=== PATIENT | female | born 2005 | race Caucasian/White ===

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

== ENCOUNTER → 2024-07-06 12:22 | Outpatient (CLI) | payer OTHER, MEDICAID, SELFPAY ==
[2022-07-10 19:27] VITALS: BMI 21.7
[2024-07-06 13:22] LABS: Add Manual Diff / Slide Review NO; Basophils Absolute Auto 100 /uL (0-100); Basophils Percent Auto 0.9 % (0-2); Eosinophils Absolute Auto 400 /uL (0-450); Eosinophils Percent Auto 5.1 % (2-4); Hemoglobin 14.8 g/dL (12.0-16.0); Lymphocytes Absolute Auto 2900 /uL (1100-4500); Lymphocytes Percent Auto 35.3 % (25-40); Mean Corpuscular HGB Conc 33.7 % (30-36); Mean Corpuscular Hemoglobin 29.2 PG (26-34); Mean Corpuscular Volume 86.5 fL (80-100); Monocytes Absolute Auto 500 /uL (0-900); Monocytes Percent Auto 5.5 % (3-14); Neutrophils Absolute Auto 4400 /uL (1500-7000); Neutrophils Percent Auto 53.2 % (50-75); Platelet Count 324 X10^3/uL (150-400); Red Blood Cell Count 5.09 X10^6/uL (4.0-5.2); Red Cell Distribution Width 13.2 % (11.6-14.8); White Blood Cell Count 8.3 X10^3/uL (4.5-11.0)
[2024-07-06 13:35] LABS: BUN Creatinine Ratio 34.8 (6-22); Blood Urea Nitrogen 16 mg/dL (7-17); Calcium 9.9 mg/dL (8.4-10.2); Carbon Dioxide 20 mmol/L (22-32); Chloride 101 mmol/L (98-107); Estimated Glomerular Filt Rate > 60 mL/min (>60); Glucose 418 mg/dL (70-100); HEMOLYSIS < 15 (0-50); Potassium 4.5 mmol/L (3.4-5.1); Sodium 133 mmol/L (137-145)
[2024-07-06 13:38] LABS: Hemoglobin A1C% w Est Avg Glu > 14.0 % (4.0-6.0)
== END ==
PROVIDERS: PCP Nurse Practitioner Family; Referring Provider Nurse Practitioner Family; Visit Provider Nurse Practitioner Family
DX: E10.9 Type 1 diabetes mellitus without complications (principal)
CPT/HCPCS: 36415; 80048; 83036; 85025

== ENCOUNTER 2024-08-11 08:30 | Emergency (ER) | payer OTHER, SELFPAY ==
[2022-07-10 19:27] VITALS: BMI 21.7
--- NOTE | 2024-08-11 08:37 | ED.GENADULT ---
HPI - General Adult General Chief complaint: Nausea/Vomiting/Diarrhea Stated complaint: Diabetes issues Time Seen by Provider: 08/11/24 08:37 History of Present Illness HPI narrative: 19-year-old woman with a history of type 1 diabetes admitted for DKA approximately 2 years ago. She recently switched from [employer] insurance to a new plan and for the last 2 months has been having difficulty getting her short-acting insulin has not been using any bolus dosing, as well as glucose testing supplies and has not been testing. Has not had her continuous glucose monitor supplies refilled for a number of months. She has been using her evening Lantus only. She notes she has been increasingly thirsty, increased urine frequency generally feeling unwell and concerned that she may be in DKA. No fevers, cough, chills. Nausea but no vomiting. No diarrhea. Related Data Previous Rx's Medication Instructions Recorded insulin glargine 100 unit/mL (3 26 unit (0.26 mL) SUBCUT BEDTIME 07/06/24 mL) subcutaneous pen (Lantus diabetes #15 mL Solostar U-100 Insulin) insulin lispro 100 unit/mL 1 unit (0.01 mL) SUBCUT QAC #15 mL 07/06/24 subcutaneous half-unit pen (Humalog Ori KwikPen (U-100)) blood-glucose sensor (Dexcom G6 See Rx Instructions .Route 07/28/24 Sensor device) .COMPLEX #3 ea insulin pump cart,automated,BT #5 ea 07/28/24 (Omnipod 5 G6 Pods (Gen 5) subcutaneous cartridge) Allergies Allergy/AdvReac Type Severity Reaction Status Date / Time No Known Drug Allergies Allergy Verified 07/06/24 11:32 Review of Systems Review of Systems Narrative: Pertinent positive and negative findings as per HPI Patient History Medical History (Updated 08/11/24 @ 10:30 by Shwetha Purdy MD) Vision changes Anxiety about health Type 1 diabetes Social History household members: none Smoking Status: Current every day smoker Tobacco: How many years used: 5 second hand exposure: No alcohol intake: never substance use type: does not use Smoking Status: Current every day smoker tobacco type: vaping alcohol intake frequency: 0-2 drinks per day Exam Initial Vital Signs Initial Vital Signs: Vital Signs Temperature 97.6 F 08/11/24 08:46 Pulse Rate 116 H 08/11/24 08:46 Respiratory Rate 25 H 08/11/24 08:46 Blood Pressure 115/77 08/11/24 08:46 Pulse Oximetry 98 08/11/24 08:46 Oxygen Delivery Method Room Air 08/11/24 08:46 General: Pale, appears uncomfortable, able to speak in complete sentences HEENT: Dry mucous membranes, normal sclera with reactive pupils, Respiratory: Lungs are clear to auscultation, deep breathing mildly tachypneic borderline Kussmaul pattern Cardiac: Tachycardic but otherwise Regular rate and rhythm no murmurs no bruits Abdomen: Soft, mild diffuse tenderness without rebound or guarding Skin: Pale, mild dehydration Neurologic: Grossly neurologically intact with no obvious asymmetries or abnormalities Psych: Cooperative, appropriate insight and affect Course Orders Ordered: ED Orders 08/11/24 08:47 Complete Blood Count AUTO DIFF Stat Comprehensive Metabolic Panel Stat Ketones (Beta-Hydroxybutyrate) Stat Lipase Stat 08/11/24 08:51 VBG [Venous Blood Gas] STAT 08/11/24 08:52 Urinalysis and Microscopic Stat 08/11/24 09:16 EKG-12 Lead Stat Discontinued Medications Sodium Chloride (Normal Saline 0.9%) 1,000 mls @ 1,000 mls/hr IV BOLUS ONE Stop: 08/11/24 09:50 Last Infusion: 08/11/24 10:09 Dose: Infused Documented By: Admin: 08/11/24 09:02 Dose: 1,000 mls/hr Documented By: TONEY Sodium Chloride (Normal Saline 0.9%) 1,000 mls @ 1,000 mls/hr IV BOLUS ONE Stop: 08/11/24 11:29 Last Infusion: 08/11/24 11:20 Dose: Infused Documented By: Admin: 08/11/24 10:38 Dose: 1,000 mls/hr Documented By: TONEY Insulin Glargine (Insulin Glargine 100 Unit/Ml 3ml Pen) 10 unit SUBCUT NOW ONE Stop: 08/11/24 10:32 Last Admin: 08/11/24 10:38 Dose: 10 unit Documented By: TONEY Co-signed By: GHAZALA Ondansetron HCl (Ondansetron 4 Mg/2 Ml Inj) 4 mg IV NOW ONE Stop: 08/11/24 08:52 Last Admin: 08/11/24 09:03 Dose: 4 mg Documented By: TONEY Vital Signs Vital signs: Vital Signs - 8 hr 08/11/24 08:46 08/11/24 10:48 Temperature 97.6 F Pulse Rate 116 H 107 H Respiratory Rate 25 H 20 Blood Pressure 115/77 116/71 Pulse Oximetry 98 100 Oxygen Delivery Method Room Air Room Air Medical Decision Making Lab Data 08/11/24 08:47 08/11/24 08:47 Labs: Lab Results 08/11/24 Range/Units 08:47 WBC 5.8 (4.5-11.0) X10^3/uL RBC 5.33 H (4.0-5.2) X10^6/uL Hgb 15.7 (12.0-16.0) g/dL Hct 45.6 (36-46) % MCV 85.5 (80-100) fL MCH 29.4 (26-34) PG MCHC 34.4 (30-36) % RDW 12.7 (11.6-14.8) % Plt Count 352 (150-400) X10^3/uL Neut % (Auto) 85.1 H (50-75) % Lymph % (Auto) 6.0 L (25-40) % Chester % (Auto) 5.9 (3-14) % Eos % (Auto) 2.6 (2-4) % Baso % (Auto) 0.4 (0-2) % Neut # (Auto) 4900 (2735-0731) /uL Lymph # (Auto) 300 L (9596-3821) /uL Chester # (Auto) 300 (0-900) /uL Eos # (Auto) 100 (0-450) /uL Baso # (Auto) 0 (0-100) /uL Sodium 135 L (137-145) mmol/L Potassium 3.5 (3.4-5.1) mmol/L Chloride 106 (98-107) mmol/L Carbon Dioxide 21 L (22-32) mmol/L BUN 21 H (7-17) mg/dL Creatinine 0.48 L (0.52-1.04) mg/dL Estimated GFR > 60 (>60) mL/min BUN/Creatinine Ratio 43.8 H (6-22) Glucose 264 H (70-100) mg/dL Calcium 8.8 (8.4-10.2) mg/dL Total Bilirubin 0.9 (0.2-1.3) mg/dL AST 27 (14-36) IU/L ALT 19 (<35) IU/L Alkaline Phosphatase 68 (38-126) U/L Total Protein 7.2 (6.3-8.2) g/dL Albumin 4.1 (3.5-5.0) g/dL Globulin 3.1 (1.7-4.1) g/dL Albumin/Globulin Ratio 1.3 (1.0-2.8) Lipase 55 (23-300) U/L Ketones 1.16 H (<0.27) mmol/L Point of Care Testing Glucose POC 260 Point of care testing: Point of Care Testing Glucose POC 260 MDM Narrative Medical decision making narrative: CC: Concern for DKA Complicating co-morbidities: Type 1 diabetes, insurance change 2 months ago difficulty getting short-acting insulin continuous glucose monitor supplies and follow up. Using Lantus without any supplemental short-acting insulin for a number of months Data collected from: patient, mother Social determinants of health that may influence the patients condition: Difficulty accessing diabetes place Discussion with her nurse practitioner regarding supplies. Practitioner stated that orders has been sent and she had not received information back from the pharmacy. She was sending information to [facility] pharmacy and patient has been going to [facility] in [place]. Listed in the chart is Medicaid as her primary insurance patient is not clear on what her current insurance coverage is in apparently did not receive an insurance card from her provider. This too may be part of the problem. Patient and her mother are working on clarifying insurance coverage and I will update that in the chart. Primary care provider is resending orders to [facility] with prior authorizations Medical records reviewed: DKA admit from 2021 is reviewed Differential considered: Hyperglycemia, DKA, viral syndrome Exam documented above, pertinent findings include: Pale, slightly dehydrated mild abdominal pain without rebound or guarding, mild tachycardia. No localizing signs of infection Lab Test results independently reviewed as above. Pertinent findings: VBG shows mild acidosis at 7.32 with a CO2 of 37.7 CBC is reassuring Chemistries show a glucose at 264. Appropriate renal function, carbon dioxide at 21. Liver studies are appropriate Anion gap of 11 Independently reviewed EKG: Sinus rhythm at a rate of 95 no acute ischemic changes Treatments: After a L of fluid she was feeling better but still slightly tachycardic. Zofran is significantly helped with nausea 2 L of fluid given, 10 units of Lantus subcutaneous this morning with breakfast including protein Discussion: 19-year-old woman with type 1 diabetes intermittent use of her insulin, insurance difficulties currently does not have her continuous glucose monitor has not been checking blood sugars has been using her Lantus but no short-acting insulin. 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 She has not in DKA at this time. We talked about temporizing measures until she can get back to regular blood sugar checks and appropriate bolusing for short-acting insulin. She has been using 26 units of Lantus at night, I am going to suggest that she go to 10 units in the morning and 16 units at night. Once supplies are available returning to daily daily doses of Lantus with NovoLog coverage we will restart. She is struggling with the emotional aspect of checking her sugars and dealing with her type 1 diabetes. She has been in counseling in the past would like to restart. Her mom feels that they can call her prior counselor and we will do so. We will also ask her to follow up with her primary care physician. She understands the need to return to the emergency department if she has further issues. Discharge Plan Departure Patient Disposition: Home Clinical Impression: Hyperglycemia Type 1 diabetes Qualifiers: Diabetes mellitus complication status: without complication Qualified Code(s): E10.9 - Type 1 diabetes mellitus without complications Vomiting Qualifiers: Vomiting type: unspecified Nausea presence: with nausea Qualified Code(s): R11.2 - Nausea with vomiting, unspecified Activity Restrictions/Additional Instructions: Thank you for coming in today, it was the right thing to do You are not in DKA however your blood sugar was slightly elevated and you were dehydrated. You are given 2 units of fluid in the emergency department. The Zofran has been helpful in controlling your nausea. You were able to eat and drink prior to discharge We were able to figure out your new insurance information and that insurance information has been provided to your primary care provider as well as hospital registration to make sure that everything is updated. I did speak with your primary care provider who is in the process of making sure that all of the insulin supplies and glucose monitoring supplies are available. She will be speaking with the pharmacy and discussing pre authorization today. Before you leave [place], I would check with the [facility] in [place] and see if they have been able to fill any of the prescriptions In the meantime, I am going to suggest that we split up your Lantus insulin from 26 units at night to 10 units in the morning and 16 units at night. There is truly no safe insulin dose when you are not checking your blood sugars however, I believe this is going to be the path of least harm. When you get the remainder of your supplies go back to 26 units at night with sliding scale coverage as you have used previously Managing type 1 diabetes is a very big deal. Most type 1 diabetics struggle with their diabetes. The fact that you are doing so means that you are absolutely normal. It also means that you do need to get back into your counselor to review some of the psychologic road blocks to getting your diabetes into better control If you find that you are getting worse or develop any new symptoms, please feel free to return to the emergency department for further evaluation. Prescriptions: No Action Dexcom G6 Sensor Device See Rx Instructions .ROUTE .COMPLEX Qty: 3 1RF Dose Instruction: FOR DIABETES; CHECK BLOOD GLUCOSE THREE TIMES DAILY BEFORE MEALS Rx Instructions: FOR DIABETES; CHECK BLOOD GLUCOSE THREE TIMES DAILY BEFORE MEALS/ PT NEEDS TO EST CARE WITH NEW PCP BEFORE NEXT FILL 07/07/22 (DME) Omnipod 5 G6 Pods (Gen 5) Cartridge See Rx Instructions .Route Qty: 5 5RF Rx Instructions: As directed Lantus Solostar U-100 Insulin 100 unit/mL (3 mL) insulin pen 26 unit SUBCUT BEDTIME Qty: 15 3RF insulin lispro [Humalog Ori KwikPen U-100] 100 unit/mL insulin pen, half-unit 1 unit SUBCUT QAC Qty: 15 0RF Rx Instructions: 1 unit/12g carbs Referrals: Bronwyn Hough, [facility] [Primary Care Provider] - Stand Alone Forms: Patient Portal/API/Survey
[2024-08-11 08:46] VITALS: BP 115/77; PULSE 116; RESP 25; TEMP 36.4; O2SAT 98; BMI 23.9
[2024-08-11] MEDS: SODIUM CHLORIDE 0.9% 1,000 ML 1000 ML IV ×2 (09:02→10:38)
[2024-08-11] MEDS: ONDANSETRON 4 MG/2 ML INJ IV (09:03)
[2024-08-11 09:06] LABS: Add Manual Diff / Slide Review NO; Basophils Absolute Auto 0 /uL (0-100); Basophils Percent Auto 0.4 % (0-2); Eosinophils Absolute Auto 100 /uL (0-450); Eosinophils Percent Auto 2.6 % (2-4); Hematocrit 45.6 % (36-46); Hemoglobin 15.7 g/dL (12.0-16.0); Lymphocytes Absolute Auto 300 /uL (1100-4500); Mean Corpuscular HGB Conc 34.4 % (30-36); Mean Corpuscular Hemoglobin 29.4 PG (26-34); Mean Corpuscular Volume 85.5 fL (80-100); Monocytes Absolute Auto 300 /uL (0-900); Monocytes Percent Auto 5.9 % (3-14); Neutrophils Absolute Auto 4900 /uL (1500-7000); Neutrophils Percent Auto 85.1 % (50-75); Platelet Count 352 X10^3/uL (150-400); Red Blood Cell Count 5.33 X10^6/uL (4.0-5.2); Red Cell Distribution Width 12.7 % (11.6-14.8); White Blood Cell Count 5.8 X10^3/uL (4.5-11.0)
[2024-08-11 09:16] LABS: Alanine Aminotransferase 19 IU/L (<35); Albumin 4.1 g/dL (3.5-5.0); Albumin Globulin Ratio 1.3 (1.0-2.8); Alkaline Phosphatase 68 U/L (38-126); Aspartate Aminotransferase 27 IU/L (14-36); BUN Creatinine Ratio 43.8 (6-22); Bilirubin Total 0.9 mg/dL (0.2-1.3); Blood Urea Nitrogen 21 mg/dL (7-17); Calcium 8.8 mg/dL (8.4-10.2); Carbon Dioxide 21 mmol/L (22-32); Chloride 106 mmol/L (98-107); Estimated Glomerular Filt Rate > 60 mL/min (>60); Globulin 3.1 g/dL (1.7-4.1); Glucose 264 mg/dL (70-100); HEMOLYSIS < 15 (0-50); Lipase 55 U/L (23-300); Potassium 3.5 mmol/L (3.4-5.1); Sodium 135 mmol/L (137-145); Total Protein 7.2 g/dL (6.3-8.2)
--- NOTE | 2024-08-11 09:16 | EKG_ITS ---
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
[2024-08-11 09:22] LABS: Ketones (Beta-Hydroxybutyrate) 1.16 mmol/L (<0.27)
[2024-08-11] MEDS: INSULIN GLARGINE 100 UNIT/ML 3ML PEN 10 UNIT SUBCUT (10:38)
[2024-08-11 10:48] VITALS: BP 116/71; PULSE 107; RESP 20; O2SAT 100
--- NOTE | 2024-08-11 11:19 | PC.NURSE ---
pt states that she is feeling muich better. denies abd pain and n/v.
[2024-08-11 11:55] VITALS: PULSE 110; RESP 18; O2SAT 99
== END 2024-08-11 11:59 | disposition home or self-care (01) ==
PROVIDERS: Emergency Provider Emergency Medicine; PCP Nurse Practitioner Family
DX: E10.65 Type 1 diabetes mellitus with hyperglycemia (principal); R11.2 Nausea with vomiting, unspecified
CPT/HCPCS: 36415; 80053; 82009; 82962; 83690; 85025; 93005; 96361; 96372; 96374; 99284; J2405

== ENCOUNTER → 2024-10-06 14:38 | Outpatient (CLI) | payer OTHER, SELFPAY ==
[2022-07-10 19:27] VITALS: BMI 21.7
[2024-10-06 15:35] LABS: BUN Creatinine Ratio 39.2 (6-22); Blood Urea Nitrogen 20 mg/dL (7-17); Calcium 9.6 mg/dL (8.4-10.2); Carbon Dioxide 23 mmol/L (22-32); Chloride 98 mmol/L (98-107); Estimated Glomerular Filt Rate > 60 mL/min (>60); HEMOLYSIS < 15 (0-50); Potassium 4.2 mmol/L (3.4-5.1); Sodium 134 mmol/L (137-145)
[2024-10-06 15:36] LABS: Hemoglobin A1C% w Est Avg Glu > 14.0 % (4.0-6.0)
[2024-10-06 16:35] LABS: Glucose 502 mg/dL (70-100)
== END ==
PROVIDERS: PCP Nurse Practitioner Family; Referring Provider Nurse Practitioner Family; Visit Provider Nurse Practitioner Family
DX: E10.9 Type 1 diabetes mellitus without complications (principal)
CPT/HCPCS: 36415; 80048; 83036

== ENCOUNTER 2024-10-06 16:56 | Emergency (ER) | payer OTHER, SELFPAY ==
[2022-07-10 19:27] VITALS: BMI 21.7
[2024-10-06 17:23] VITALS: BP 134/77; PULSE 78; RESP 16; TEMP 36.6; O2SAT 100; BMI 24.3
[2024-10-06 17:52] LABS: Add Manual Diff / Slide Review NO; Basophils Absolute Auto 100 /uL (0-100); Basophils Percent Auto 0.7 % (0-2); Eosinophils Absolute Auto 300 /uL (0-450); Eosinophils Percent Auto 2.8 % (2-4); Hematocrit 45.1 % (36-46); Hemoglobin 15.6 g/dL (12.0-16.0); Lymphocytes Absolute Auto 3500 /uL (1100-4500); Lymphocytes Percent Auto 37.4 % (25-40); Mean Corpuscular HGB Conc 34.7 % (30-36); Mean Corpuscular Hemoglobin 29.5 PG (26-34); Monocytes Absolute Auto 300 /uL (0-900); Neutrophils Absolute Auto 5200 /uL (1500-7000); Neutrophils Percent Auto 56.1 % (50-75); Platelet Count 353 X10^3/uL (150-400); Red Cell Distribution Width 12.8 % (11.6-14.8); White Blood Cell Count 9.3 X10^3/uL (4.5-11.0)
[2024-10-06 18:01] LABS: Alanine Aminotransferase 26 IU/L (<35); Albumin 4.8 g/dL (3.5-5.0); Albumin Globulin Ratio 1.4 (1.0-2.8); Alkaline Phosphatase 69 U/L (38-126); Aspartate Aminotransferase 27 IU/L (14-36); BUN Creatinine Ratio 38.8 (6-22); Bilirubin Total 0.7 mg/dL (0.2-1.3); Blood Urea Nitrogen 19 mg/dL (7-17); Calcium 9.5 mg/dL (8.4-10.2); Carbon Dioxide 26 mmol/L (22-32); Chloride 99 mmol/L (98-107); Estimated Glomerular Filt Rate > 60 mL/min (>60); Globulin 3.4 g/dL (1.7-4.1); Glucose 286 mg/dL (70-100); HEMOLYSIS 16 (0-50); Potassium 3.3 mmol/L (3.4-5.1); Sodium 136 mmol/L (137-145); Total Protein 8.2 g/dL (6.3-8.2)
[2024-10-06 18:05] LABS: Base Excess VBG -0.5 mmol/L (0-4); HCO3 VBG 25 mmol/L (24-28); Oxygen Saturation VBG 59 % (70-75); PCO2 VBG 41.7 mmHg (45-50); PO2 VBG 31 mmHg (35-45); Total CO2 VBG 24 mmol/L (24-29); pH VBG 7.38 (7.33-7.43)
[2024-10-06] MEDS: SODIUM CHLORIDE 0.9% 1,000 ML 1000 ML IV (18:17)
[2024-10-06 18:28] LABS: Ketones (Beta-Hydroxybutyrate) 0.37 mmol/L (<0.27)
[2024-10-06 20:57] VITALS: BP 139/90; PULSE 70; RESP 16; O2SAT 98
--- NOTE | 2024-10-06 22:07 | ED_ITS ---
HPI - General Adult General Chief complaint: Diabetic Problem Stated complaint: high A1c and blood sugar Time Seen by Provider: 10/06/24 22:04 Source: patient Mode of arrival: Ambulatory History of Present Illness HPI narrative: 19-year-old female with history of diabetes mellitus diagnosed at age 15, prior episodes of DKA, waiting on insurance approval for insulin pump, self reports her hemoglobin A1c 14 range, had routine blood draw earlier today and was called back for glucose level reported 500s. Patient has no fevers, chills, shortness of breath, recent illness symptoms, diarrhea, UTI symptoms. She takes insulin injections for glucose control but finds that she is very busy and misses doses regularly. No dizziness or weakness. Able to take oral fluids, no nausea or vomiting. Related Data Previous Rx's Medication Instructions Recorded insulin glargine 100 unit/mL (3 26 unit (0.26 mL) SUBCUT BEDTIME 07/06/24 mL) subcutaneous pen (Lantus diabetes #15 mL Solostar U-100 Insulin) insulin lispro 100 unit/mL 1 unit (0.01 mL) SUBCUT QAC #15 mL 07/06/24 subcutaneous half-unit pen (Humalog Ori KwikPen (U-100)) blood-glucose sensor (Dexcom G6 See Rx Instructions .Route 07/28/24 Sensor device) .COMPLEX #3 ea insulin pump cart,automated,BT #5 ea 07/28/24 (Omnipod 5 G6 Pods (Gen 5) subcutaneous cartridge) Allergies Allergy/AdvReac Type Severity Reaction Status Date / Time No Known Drug Allergies Allergy Verified 10/06/24 17:26 Patient History Medical History (Updated 10/06/24 @ 22:35 by Campos Mcguire MD) Vision changes Anxiety about health Type 1 diabetes Social History household members: none Smoking Status: Current every day smoker Tobacco: How many years used: 5 second hand exposure: No alcohol intake: never substance use type: does not use Smoking Status: Current every day smoker tobacco type: vaping alcohol intake frequency: 0-2 drinks per day Exam Narrative Exam Narrative: GENERAL: Well-developed patient, in mild distress. No fruity breath odor HEAD: Atraumatic. Normocephalic. EYES: Pupils equal round and reactive. Extraocular motions intact. No scleral icterus. No injection or drainage. ENT: Nose without bleeding, purulent drainage. Throat without erythema, tonsillar hypertrophy or exudate. Airway patent. NECK: Trachea midline. Non tender CARDIOVASCULAR: Regular rate and rhythm without murmurs, gallops, or rubs. RESPIRATORY: Clear to auscultation. Breath sounds equal bilaterally. No wheezes, rales, or rhonchi. GASTROINTESTINAL: Abdomen soft, non-tender, nondistended. EXTREMITIES: No edema or joint tenderness. BACK: Nontender without deformity or crepitance. No flank tenderness. NEURO: AOx3. Motor functions grossly nonfocal SKIN: No rash or erythema of visible areas Initial Vital Signs Initial Vital Signs: Vital Signs Temperature 98 F 10/06/24 17:23 Pulse Rate 78 10/06/24 17:23 Respiratory Rate 16 10/06/24 17:23 Blood Pressure 134/77 10/06/24 17:23 Pulse Oximetry 100 10/06/24 17:23 Oxygen Delivery Method Room Air 10/06/24 17:23 Course Orders Ordered: Discontinued Medications Sodium Chloride (Normal Saline 0.9%) 1,000 mls @ 1,000 mls/hr IV BOLUS ONE Stop: 10/06/24 19:14 Last Infusion: 10/06/24 19:42 Dose: Infused Documented By: Admin: 10/06/24 18:17 Dose: 1,000 mls/hr Documented By: MARGUERITE Ondansetron HCl (Ondansetron 4 Mg/2 Ml Inj) 4 mg IV NOW PRN PRN Reason: Nausea And Vomiting Ondansetron HCl (Ondansetron 4 Mg Odt) 4 mg PO NOW PRN PRN Reason: Nausea And Vomiting Potassium Chloride (Potassium Chloride 20 Meq/15 Ml Udc) 40 meq PO NOW ONE Stop: 10/06/24 22:16 Last Admin: 10/06/24 22:38 Dose: 40 meq Documented By: MARK ANTHONY Vital Signs Vital signs: Vital Signs - 8 hr 10/06/24 17:23 10/06/24 20:57 Temperature 98 F Pulse Rate 78 70 Respiratory Rate 16 16 Blood Pressure 134/77 139/90 Pulse Oximetry 100 98 Oxygen Delivery Method Room Air Room Air Medical Decision Making Lab Data Lab results reviewed: Yes I reviewed the patient's lab results. Lab results narrative: White blood cell count 9300, hemoglobin 15.6, platelets adequate. Glucose 286. Potassium 3.3, oral repletion ordered. Sodium 136, serum CO2 26, serum chloride 99. BUN 19 with creatinine 0.49 noted. Anion gap 11. VBG pH 7.38 noted. 10/06/24 17:40 10/06/24 17:40 Labs: Lab Results 10/06/24 10/06/24 Range/Units 17:40 17:58 WBC 9.3 (4.5-11.0) X10^3/uL RBC 5.30 H (4.0-5.2) X10^6/uL Hgb 15.6 (12.0-16.0) g/dL Hct 45.1 (36-46) % MCV 85.0 (80-100) fL MCH 29.5 (26-34) PG MCHC 34.7 (30-36) % RDW 12.8 (11.6-14.8) % Plt Count 353 (150-400) X10^3/uL Neut % (Auto) 56.1 (50-75) % Lymph % (Auto) 37.4 (25-40) % Russell % (Auto) 3.0 (3-14) % Eos % (Auto) 2.8 (2-4) % Baso % (Auto) 0.7 (0-2) % Neut # (Auto) 5200 (0485-1619) /uL Lymph # (Auto) 3500 (1512-4463) /uL Russell # (Auto) 300 (0-900) /uL Eos # (Auto) 300 (0-450) /uL Baso # (Auto) 100 (0-100) /uL VBG pH 7.38 (7.33-7.43) VBG pCO2 41.7 L (45-50) mmHg VBG pO2 31 L (35-45) mmHg VBG HCO3 25 (24-28) mmol/L VBG Total CO2 24 (24-29) mmol/L VBG O2 Saturation 59 L (70-75) % VBG Base Excess -0.5 L (0-4) mmol/L FiO2 % 21 % % Sodium 136 L (137-145) mmol/L Potassium 3.3 L (3.4-5.1) mmol/L Chloride 99 (98-107) mmol/L Carbon Dioxide 26 (22-32) mmol/L BUN 19 H (7-17) mg/dL Creatinine 0.49 L (0.52-1.04) mg/dL Estimated GFR > 60 (>60) mL/min BUN/Creatinine Ratio 38.8 H (6-22) Glucose 286 H D (70-100) mg/dL Calcium 9.5 (8.4-10.2) mg/dL Total Bilirubin 0.7 (0.2-1.3) mg/dL AST 27 (14-36) IU/L ALT 26 (<35) IU/L Alkaline Phosphatase 69 (38-126) U/L Total Protein 8.2 (6.3-8.2) g/dL Albumin 4.8 (3.5-5.0) g/dL Globulin 3.4 (1.7-4.1) g/dL Albumin/Globulin Ratio 1.4 (1.0-2.8) Ketones 0.37 H (<0.27) mmol/L Point of Care Testing Glucose POC 198 Point of care testing: Point of Care Testing Glucose POC 198 MDM Narrative Medical decision making narrative: 19-year-old female with history of diabetes, history of prior diabetic ketoacidosis, high sugar 501 reported from prior office visit, advised to come here for further evaluation. Glucose here 289 noted, normal anion gap, pH on VBG normal. Not consistent with diabetic ketoacidosis. Low potassium noted, oral repletion given.. We will discharge home on regular regimen. Continue current medication regimen. Consider repeat potassium level in follow up. Discharged home, stable improved. Discharge Plan Departure Patient Disposition: Home Clinical Impression: Hyperglycemia, History of diabetes mellitus Activity Restrictions/Additional Instructions: Ms Lacey, Hosea had high sugar level over 500 earlier today, drawn from clinic, history of diabetic ketoacidosis, advised to arrived here for further evaluation. Blood sugar here was 289. Other lab tests also reassuring, no evidence of diabetic ketoacidosis today. Continue taking your insulin regimen. Continue advocating for insulin pump through your provider and your health insurance, as this likely we will give you access to better glucose control overall. Your blood potassium was a little low today, oral potassium repletion was given. Follow up with your regular provider as planned. Take your medications as directed. Return earlier to this/nearest emergency department for any change worsening symptoms or any concerns prior. Thank you for allowing our team to take care of you today. Prescriptions: No Action Dexcom G6 Sensor Device See Rx Instructions .ROUTE .COMPLEX Qty: 3 1RF Dose Instruction: FOR DIABETES; CHECK BLOOD GLUCOSE THREE TIMES DAILY BEFORE MEALS Rx Instructions: FOR DIABETES; CHECK BLOOD GLUCOSE THREE TIMES DAILY BEFORE MEALS/ PT NEEDS TO EST CARE WITH NEW PCP BEFORE NEXT FILL 07/07/22 (DME) Omnipod 5 G6 Pods (Gen 5) Cartridge See Rx Instructions .Route Qty: 5 5RF Rx Instructions: As directed Lantus Solostar U-100 Insulin 100 unit/mL (3 mL) insulin pen 26 unit SUBCUT BEDTIME Qty: 15 3RF insulin lispro [Humalog Ori KwikPen U-100] 100 unit/mL insulin pen, half- unit 1 unit SUBCUT QAC Qty: 15 0RF Rx Instructions: 1 unit/12g carbs Referrals: Bronwyn Hough, [facility] [Primary Care Provider] - Stand Alone Forms: Patient Portal/API/Survey
[2024-10-06] MEDS: POTASSIUM CHLORIDE 20 MEQ/15 ML UDC 40 MEQ PO (22:38)
[2024-10-06 22:44] VITALS: BP 130/84; PULSE 72; RESP 16; O2SAT 100
== END 2024-10-06 22:44 | disposition home or self-care (01) ==
PROVIDERS: Emergency Medicine; Emergency Provider Emergency Medicine; PCP Nurse Practitioner Family
DX: E10.65 Type 1 diabetes mellitus with hyperglycemia (principal); Z79.4 Long term (current) use of insulin; E10.9 Type 1 diabetes mellitus without complications
CPT/HCPCS: 36415; 80048; 80053; 82009; 82805; 82962; 83036; 85025; 96360; 99284

== ENCOUNTER → 2024-11-16 12:53 | Outpatient (CLI) | payer OTHER, SELFPAY ==
[2022-07-10 19:27] VITALS: BMI 21.7
--- NOTE | 2024-11-16 12:54 | DIAB.INIT ---
Initial Diabetes Education Assessment Name: Elham Lacey Date: 11/16/24 Time: 1-155 Dx: T1DM Provider: [place] Elham presents for initial DM visit virtually using [facility]. Diagnosed in 2019. Lives in [place]. Back on Omnipod. Was off for 4 months. Back on x 1 month Has Roberto Carlos riley referral per report. Unaware of [place] [facility] education and endo per report. Works at [employer]. Reports during work feeling as though she does not trust her correction settings. No lows this week at work, with exception of one day where her activity was higher after lunch. RD messaged Omnipod sap trainer about a sensitivity change or activity mode during work option. States she will sometimes add CHO she does not actually eat as a correction. States she would like more of a review of carb bolusing. Historically she did not bolus, which was likely the main contributing factor to her hyperglycemia. Previously afraid to bolus for fear of lows. Has a therapist, whom she chats about this with. Settings: basal rate: 0.8-1u/hr IC: 1:9 ISF: 1:35 BG target: 12a-9p: 130mg/dl and 9p-12a: 150mg/dl BG threshold: 12a-9p: 200mg/dl and 9p-12a: 200mg/dl TDD: 41.1u Diet Recall: wake 7- 7-9a: egg whites, cheese, roasted potatoes 1p: rice stir [place] with spicy sauce, tofu-- microwavable rice with veggies 1-7p: 2 macrons (4-6 per day) 630-7p: gardein frozen meatball, rice or pasta 8p: protein bar pre gym Harder to estimate CHO at family dinner, eating out. Physical Activity: Gym 4 days per week Self-Monitoring Blood Glucose: TIR: 9% very high 31% high 60% in range 0% low avmg/dl Std dev: 50mg/dl variation: 28.4% Diabetes Medications: omnipod Pertinent Labs: HgA1c: >14% 09/2024 >14% 06/2024 Past Medical History: (Last Updated 07/06/24 @ 14:50 by Bronwyn Hough, [facility]-) Anxiety about health Type 1 diabetes Vision changes Intervention: This participant was very receptive. Provided appropriate educational handouts. Discussed the following topics: Omnipod settings and avoiding false carb entries vs changes ISF Local DM education and endo resources near her Bolusing for meals Review of CHO amounts in foods she eats Created SMART goals for patient self-care and success. Goals: Call Margie Riley to see if you need a referral Avoid adding false CHO entires Continue bolusing Follow-up: REBEKAH GANDHI follow-up in 2 weeks Carolina Powell RDN, [facility] Certified Diabetes [facility] and Jewel Sawyer P: [phone] Thank you for this referral
== END ==
PROVIDERS: PCP Nurse Practitioner Family; Referring Provider Nurse Practitioner Family
DX: E11.10 Type 2 diabetes mellitus with ketoacidosis without coma (principal); Z96.41 Presence of insulin pump (external) (internal); Z71.3 Dietary counseling and surveillance
CPT/HCPCS: G0108

== ENCOUNTER → 2024-12-07 13:02 | Outpatient (CLI) | payer OTHER, SELFPAY ==
[2022-07-10 19:27] VITALS: BMI 21.7
--- NOTE | 2024-12-07 13:03 | DIAB.FU ---
Follow-up Diabetes Education Assessment Name: Elham Lacey Date: 12/07/24 Time: 1-130p Dx: T1DM Provider: [place] Lizarraga presents for follow-up DM visit virtually using Portal. Diagnosed in 2020. Lives in [place]. Reports increased stress last week. Mother had surgery. Also work has been very busy for two weeks, this week is better. Eating mostly processed foods from a box and using that for CHO content. Reports some compromised sites from overuse, endorses some scar tissue. Trying leg for infusion site. She seems to be bolusing appropriately and using correction vs adding false CHO. Higher BG, which may be r/t stress and the need for increased ISF. Has not yet called [facility] to determine if a referral is needed, but plans to do so today. Settings: IC: 1:9 ISF: 1:35--- changed to 1:38 basal rate: 0.8-1u/hr BG target: 12a-9p: 130mg/dl and 9p-12a: 150mg/dl BG threshold: 12a-9p: 200mg/dl and 9p-12a: 200mg/dl TDD: 41.1u----52.7u Physical Activity: Gym 4 days per week Self-Monitoring Blood Glucose: Significant increase in hyperglycemia since last visit. TIR: 31% very high 28% high 41% in range 0% low avmg/dl GMI: 8.4% Std dev: 79 mg/dl variation: 36.7% Last TIR: 9% very high 31% high 60% in range 0% low avmg/dl Std dev: 50mg/dl variation: 28.4% Diabetes Medications: insulin via omnipod Pertinent Labs: HgA1c: >14% 09/2024 >14% 06/2024 Past Medical History: (Last Updated 07/06/24 @ 14:50 by Bronwyn Hough, [facility]) Anxiety about health Type 1 diabetes Vision changes Intervention: This participant was very receptive. Provided appropriate educational handouts. Discussed the following topics: Omnipod settings and slight change to ISF Stress management and impact on BG Site changes and scar tissue impact on insulin infusion Encouraged calling local endo office Created SMART goals for patient self-care and success. Goals: Call [facility] to see if you need a referral-- in progress Avoid adding false CHO entires - met Continue bolusing - met Message RD in one week or less to report on ISF change- new Follow-up: REBEKAH GANDHI follow-up in 2-3 weeks anastasiia Powell RDN, HIRAM Certified Diabetes Care and Supervisor [employer] P: [phone] Thank you for this referral
== END ==
LOC: DIET 13:02
PROVIDERS: PCP Nurse Practitioner Family; Referring Provider Nurse Practitioner Family
DX: E10.65 Type 1 diabetes mellitus with hyperglycemia (principal); Z71.3 Dietary counseling and surveillance; Z96.41 Presence of insulin pump (external) (internal)
CPT/HCPCS: G0108

== ENCOUNTER → 2024-12-29 12:50 | Outpatient (CLI) | payer OTHER, SELFPAY ==
[2022-07-10 19:27] VITALS: BMI 21.7
--- NOTE | 2024-12-29 15:43 | DIAB.FU ---
Follow-up Diabetes Education Assessment Name: Elham Lacey Date: 12/29/24 Time: [id number] Dx: T1DM Provider: [place] Elham presents for follow-up DM visit virtually using Portal. Diagnosed in 2019. Lives in [place]. Mom is doing well and less stress at work lately. Reports gap in insurance with being on her father's plan, but recently got insurance from her job. Has h/o missing pump supplies due to gap in insurance. has called [facility] and has appt for April. Offered [facility] program, but states she is happy working with this RD virtually at this time. Mother lives in [place] and she comes here for PC appts. Needs to figure out CGM rx since switching insurance. Gets G6 from [employer]. Omnipod not compatible with iphone and G7 until Fall 2024 per Omnipod hardware trainer. Elham has not tried G7 before. May want to trial sample in the future. Gets Omnipods from [facility]. 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 Sometimes bolusing late for lunch and dinner meals. Those are where most elevations seem to occur. May need stronger insulin to carb ratio. Settings: IC: 1:9 ISF: 1:36 basal rate: 0.8-1u/hr BG target: 12a-9p: 130mg/dl and 9p-12a: 150mg/dl BG threshold: 12a-9p: 200mg/dl and 9p-12a: 200mg/dl TDD: 41.1u----52.7u---43u Physical Activity: Gym 4 days per week previously reported. Not discussed today. Self-Monitoring Blood Glucose: Improved TIR but still <70% time in range. TIR: 18% very high 25% high 57% in range 0% low avmg/dl GMI: 7.8% Std dev: 68 mg/dl variation: 36.1% Last TIR: 31% very high 28% high 41% in range 0% low avmg/dl GMI: 8.4% Std dev: 79 mg/dl variation: 36.7% Diabetes Medications: insulin via omnipod Pertinent Labs: HgA1c: >14% 09/2024 >14% 06/2024 Past Medical History: (Last Updated 07/06/24 @ 14:50 by Bronwyn Hough, [facility]-) Anxiety about health Type 1 diabetes Vision changes Intervention: This participant was very receptive. Provided appropriate educational handouts. Discussed the following topics: Encouraged keeping endo visit in Sept Brainstormed steps to making sure supplies are covered by new insurance CHO content of bakery foods Bolusing pre meal Created SMART goals for patient self-care and success. Goals: Message RD in one week or less to report on ISF change- met Call DME about CGM sensors and insurance chagne- new Reevaluate CHO for bakery goods for better coverage- new Try to bolus pre meal at lunch and dinner- new Follow-up: REBEKAH GANDHI follow-up in 2-3 weeks. Consider IC change if meals still elevated consistently. Carolina Powell, REBEKAH, CDCES Certified Diabetes Care and Software Engineer Developer P: [phone] Thank you for this referral
== END ==
LOC: DIET 12:51
PROVIDERS: PCP Nurse Practitioner Family; Referring Provider Nurse Practitioner Family
DX: E10.10 Type 1 diabetes mellitus with ketoacidosis without coma (principal); Z71.3 Dietary counseling and surveillance; Z96.41 Presence of insulin pump (external) (internal)
CPT/HCPCS: G0108

== ENCOUNTER → 2025-01-11 12:59 | Outpatient (CLI) | payer OTHER, SELFPAY ==
[2022-07-10 19:27] VITALS: BMI 21.7
--- NOTE | 2025-01-11 13:05 | DIAB.FU ---
Follow-up Diabetes Education Assessment Name: Elham Lacey Date: 01/11/25 Time: 1-130p Dx: T1DM Provider: [place] Lizarraga presents for follow-up DM visit virtually using Portal. Diagnosed in 2020. Lives in [place]. Insulin approved with new insurance. DME updated with new insurance, and should receive sensors next week. Running low on CGM G6 supplies. No low BG recently, but having frequent elevations particularly mid day. 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 She feels she may not be dosing enough insulin. Also sometimes missing her bolus pre meal per report. Most times reports indicate pre bolusing, however occasional missed bolus documented. Other snacks at work, she has increased the bolus for and that seems to be working well. Not using correction dosing in Omnipod. Will dose extra carbs instead. Settings: IC: 1:9 ISF: 1:35 BG target; 110mg/dl TDD: 41.1u----52.7u---43u----46.5u Physical Activity: Gym 4 days per week previously reported. Not discussed today. Self-Monitoring Blood Glucose: Slight increase in hyperglycemia. On the last 10 days of her G6 transmitter. DME should be shipping tomorrow, but she is not sure of details. TIR: 20% very high 26% high 54% in range 0% low avmg/dl GMI: 7.9% Std dev: 67 mg/dl variation: 35.3% Last TIR: 18% very high 25% high 57% in range 0% low avmg/dl GMI: 7.8% Std dev: 68 mg/dl variation: 36.1% Diabetes Medications: insulin via omnipod Pertinent Labs: HgA1c: >14% 09/2024 >14% 06/2024 Past Medical History: (Last Updated 07/06/24 @ 14:50 by Bronwyn Hough, [facility]) Anxiety about health Type 1 diabetes Vision changes Nutrition Rx: CHO 45g per meal ; snacks: 15-30g Nutrition Diagnosis: Nutrition and food related knowledge deficit r/t needing more guidance on CHO content aeb pt report of under bolusing Intervention: This participant was very receptive. Provided appropriate educational handouts. Discussed the following topics: CHO content of brownies Estimating CHO in baked goods Using correction vs entering false CHO portions Troubleshooting for supplies Created SMART goals for patient self-care and success. Goals: Call DME about CGM sensors and insurance change- met Reevaluate CHO for bakery goods for better coverage- met/in progress Try to bolus pre meal at lunch and dinner- improved Try 45-60g for brownie- new Use correction vs false CHO entries- new Call DME about shipping for G6 transmitter- new Follow-up: REBEKAH GANDHI follow-up in 3-4 weeks. Consider IC change if meals still elevated consistently. Carolina Powell RDN, [facility] Certified Diabetes Care and Postbed Stitcher P: [phone] Thank you for this referral
== END ==
PROVIDERS: PCP Nurse Practitioner Family; Referring Provider Nurse Practitioner Family
DX: E10.65 Type 1 diabetes mellitus with hyperglycemia (principal); Z71.3 Dietary counseling and surveillance; Z96.41 Presence of insulin pump (external) (internal)
CPT/HCPCS: 97803

== ENCOUNTER → 2025-05-04 15:27 | Outpatient (CLI) | payer OTHER, SELFPAY ==
[2022-07-10 19:27] VITALS: BMI 21.7
--- NOTE | 2025-05-04 15:32 | DIAB.MNTFU ---
Follow-up Diabetes Medical Nutrition Therapy Assessment Name: Elham Lacey Date: 05/04/25 Time: 108-2p Dx: T1DM Provider: [place] Elham presents for follow-up DM visit virtually using [facility] Portal. Diagnosed in 2019. Lives in [place]. Endo visit completed on 04/20. Reports hgA1c of 7.2%, much improved. States she has never had a hgA1c under 13% in the past. Reports endo changed target goal in AM to increase insulin and reduce elevated BG. Not currently using rec of 110mg/dl target goal. Maybe something to consider in the future. Seems to be under bolusing at meals. Reports bolusing for 90g at a meal that seems to be >100g, fast food meal. Has not previously looked up CHO or used any resources. Reports some emotional eating recently with back injury and being home lately. Seems to need review of CHO content. Tried G7 sensor and liked it. Coordinated with PCP about G7 rx, and now using G7 sensors with OP5. Picking up insulin q other week. 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 Due to eye appt. Reports h/o cataracts. Reports left eye blurry vision. UTD on dental. Plans to go to a music festival and needing to plan for DM supplies. Settings: IC: 1:9 ISF: 1:35--- changed to 37 on her own-- today change to 34--- changed prior to visit 36 BG target; 110mg/dl--- 120-130mg/dl TDD: 41.1u----52.7u---43u----46.5u--- 49.7u--- 53.7u Physical Activity: Not discussed today. Self-Monitoring Blood Glucose: Increased hyperglycemia and excessive time >250mg/dl TIR: 21% very high 27% high 51% in range 1% low 0% very low avmg/dl GMI: % Std dev: 76 mg/dl variation: 39.1% Last TIR: 13% very high 20% high 66% in range 0% low avmg/dl GMI: 7.5% Std dev: 73 mg/dl variation: 42.1% Diabetes Medications: insulin via omnipod Pertinent Labs: HgA1c: >14% 06/2024 >14% 09/2024 7.2% 04/2025 reported Past Medical History: (Last Updated 07/06/24 @ 14:50 by Bronwyn Hough [facility]) Anxiety about health Type 1 diabetes Vision changes Nutrition Rx: carbs per meal: 45-60g ; per snack: 15-30g Nutrition Prescription: - Excessive CHO intake r/t stage of change/emotional eating aeb pt report and elevated BG - Nutrition knowledge deficit r/t needing more resources for CHO amts aeb pt report Intervention: This participant was very receptive. Provided appropriate educational handouts. Discussed the following topics: Pod settings and changes with endo, consideration for 110mg/dl target BG Access to supplies Troubleshooting insulin rx for monthly picker operator Reducing DM complications and local eye specialists Bolusing behavior Resources for carb counting Foods she often eats and carb content Preparedness for music festival: keeping extra pods, CGM sensors, insulin pens, and meter with supplies Hydration and BG Created SMART goals for patient self-care and success. Goals: Try new ISF setting- met Consider G7 sample- met Ask pharmacy about how to change rx for insulin monthly picker operator- new Call eye doctor- new Try looking up carb amounts- new Try bolusing more for higher CHO meals- new Follow-up: REBEKAH GANDHI follow-up in June per pt req. Carolina Powell RDN, HIRAM Certified Diabetes Care and Matlab Developer P: [phone] Thank you for this referral
== END ==
LOC: DIET 15:27
PROVIDERS: PCP Nurse Practitioner Family; Referring Provider Nurse Practitioner Family
DX: E10.65 Type 1 diabetes mellitus with hyperglycemia (principal); Z71.3 Dietary counseling and surveillance; Z96.41 Presence of insulin pump (external) (internal)
CPT/HCPCS: 97803